=== PATIENT | female | born 1955 | race Two or more races ===

== ENCOUNTER 2018-08-30 08:41 | Outpatient (CLI) | payer OTHER | END 2018-08-30 08:58 | disposition home or self-care (01) | LOC: TOM 08:41 | DX: R19.4 Change in bowel habit (principal); K63.5 Polyp of colon; K56.50 Intestinal adhesions [bands], unspecified as to partial versus complete obstruction ==

== ENCOUNTER 2021-04-04 12:45 | Inpatient (IN) | payer OTHER ==
[~2021-04-04] VITALS: Ht 152.4 cm; Wt 75.3 kg
[2021-04-05] MEDS ORDERED: TOPROL XL50 M1 PO (10:24)
[2021-04-05] MEDS ORDERED: SIMVASTAT PO (10:24)
[2021-04-05] MEDS ORDERED: COZAAR100 MG PO (10:25)
[2021-04-05] MEDS ORDERED: HYDROCHLOR PO (10:25)
[2021-04-06] MEDS ORDERED: SIMVASTATIN10 MG PO (07:48)
[2021-04-06] MEDS ORDERED: HYDROCHLOROTHIA25 MG PO (07:48)
== END 2021-04-09 13:56 | disposition home or self-care (01) | DRG 743 ==
LOC: OB/GYN 04-06 05:00 → O/R 04-06 05:00 → SURH 04-06 08:15 → OB/GYN 04-06 14:11
PROVIDERS: ADMIT Specialist; ATTEND Specialist
PROC: 0UT20ZZ Resection of Bilateral Ovaries, Open Approach (ICD-10-PCS; 2021-04-06)
PROC: 0UB70ZZ Excision of Bilateral Fallopian Tubes, Open Approach (ICD-10-PCS; 2021-04-06)
PROC: 0UT90ZZ Resection of Uterus, Open Approach (ICD-10-PCS; principal; 2021-04-06 08:15)
DX: D27.0 Benign neoplasm of right ovary (principal); D25.9 Leiomyoma of uterus, unspecified; N80.0 Endometriosis of uterus; N83.8 Other noninflammatory disorders of ovary, fallopian tube and broad ligament; N94.89 Other specified conditions associated with female genital organs and menstrual cycle; R19.00 Intra-abdominal and pelvic swelling, mass and lump, unspecified site; I10 Essential (primary) hypertension